=== PATIENT | female | born 1965 | race Caucasian/White ===

== ENCOUNTER → 2017-10-19 | Outpatient (CLI) | payer OTHER ==
[2017-10-19 18:30] LABS: ALBUMIN 3.5 gm/dl (3.4-5.0); ALT/SGPT 53 U/L (12-78); BLOOD UREA NITROGEN 11 mg/dl (7-18); CALCIUM 9.1 mg/dl (8.5-10.1); CARBON DIOXIDE 29 mmol/L (21-32); CREATININE 0.86 mg/dl (0.60-1.20); GLUCOSE 142 mg/dl (70-99); SODIUM 138 mmol/L (136-145)
[2017-10-19 18:33] LABS: ALKALINE PHOSPHATASE 133 U/L (45-117); AST/SGOT 23 U/L (15-37); TOTAL PROTEIN 7.7 gm/dl (6.4-8.2)
== END | disposition home or self-care (01) ==
LOC: C.LABMFLN 11:12
PROVIDERS: ATTEND Family Medicine
DX: L72.9 Follicular cyst of the skin and subcutaneous tissue, unspecified (principal); E55.9 Vitamin D deficiency, unspecified; R74.8 Abnormal levels of other serum enzymes

== ENCOUNTER 2022-02-03 12:35 | Observation (INO) ==
--- NOTE | 2022-02-01 14:17 | Anesthesiology Consultation ---
Date of Service February 01, 2022 Assessment & Plan (1) Encounter for pre-operative examination: Chart Review Chart Review: Acceptable Risk for Surgery (pending preop Covid testing results ) and Patient NOT seen in Pre Admission Testing -Will leave to anesthesiologist discretion if CXR/coags needed DOS (secondary to PNB) - Check BSG AM DOS Per nursing assessment 01/27/2022, patient denies any recent travel. No known COVID infection in the past 90 days. Patient is fully vaccinated for COVID. No known Covid positive exposures or Covid related symptoms. Preop Covid testing 02/01/22= results pending Left knee arthroscopy, partial medial meniscectomy 06/02/2021 = done under [facility] with LMA #4. Atraumatic x1. History Surgery Operation Date: 02/03/22 15:20 Proposed Procedures p Right Shoulder Arthroscopy with Extensive Debridement, Acromioplasty Possible Rotator Cuff Repair - Michele Jimenez, Height/Weight Height: 5 ft 5 in Weight: 133.81 kg Allergies Allergy/AdvReac Type Severity Reaction Status Date / Time Influenza Virus Vaccines Allergy Intermediate Hives Verified 01/27/22 08:33 Medications Home Medications Medication Instructions Recorded Confirmed Last Taken cyclobenzaprine 10 mg tablet 10 mg PO TID PRN #90 tab 03/12/19 01/27/22 05/30/21 blood sugar diagnostic (OneTouch #100 ea 03/20/19 11/02/21 Unknown Verio test strips) albuterol sulfate 2.5 mg INHALATION Q4H PRN 05/17/21 01/27/22 Unknown slxxmysofr-cmyvblkoxodyr-jkzojcik 1 tab PO Q6H PRN 05/17/21 01/27/22 Unknown 50 mg-325 mg-40 mg tablet (Esgic) celecoxib 200 mg capsule (Celebrex) 200 mg PO QAM 05/17/21 01/27/22 06/01/21 14:00 glimepiride 2 mg tablet 2 mg PO HS 05/17/21 01/27/22 06/02/21 01:00 glimepiride 2 mg tablet (Amaryl) 4 mg PO QAM 05/17/21 01/27/22 06/01/21 14:00 melatonin 5 mg tablet 10 mg PO HS 05/17/21 01/27/22 06/02/21 02:00 omeprazole 20 mg capsule,delayed 20 mg PO BID 05/17/21 01/27/22 06/01/21 14:00 release vitamin B complex (B 1 tab PO QAM 05/17/21 01/27/22 06/01/21 14:00 Complex-Vitamin B12) montelukast 10 mg tablet 10 mg PO QAM #90 tab 06/07/21 01/27/22 Unknown ondansetron 4 mg disintegrating 4 mg PO Q8H PRN #90 tab 06/28/21 01/27/22 Unknown tablet glucometer #1 ea 11/02/21 11/02/21 Unknown glucometer test strips #50 ea 11/19/21 Unknown lancets 33 gauge (OneTouch Delica #100 ea 11/19/21 Unknown Lancets) albuterol sulfate 90 mcg/actuation 2 inh INHALATION Q4H PRN #18 g 11/26/21 01/27/22 Unknown aerosol inhaler amlodipine 5 mg tablet 5 mg PO QAM #90 tab 12/03/21 01/27/22 Unknown hydrocodone 5 mg-acetaminophen 325 1 - 2 tab PO .Q4h-6h PRN #30 tab 12/29/21 01/27/22 Unknown mg tablet MDD 6 bupropion HCl 100 mg tablet 100 mg PO BID #60 tab 01/03/22 01/27/22 Unknown potassium chloride 8 mEq 8 meq PO QAM #90 tab 01/24/22 01/27/22 Unknown tablet,extended release (Klor-Con) spironolactone 25 mg tablet 25 mg PO QAM #90 tab 01/24/22 01/27/22 Unknown (Aldactone) aspirin 81 mg tablet,delayed 81 mg PO QAM 01/27/22 01/27/22 Unknown release (Enteric Coated Aspirin) cholecalciferol (vitamin D3) 1,250 1,250 mcg PO Q7D 01/27/22 01/27/22 Unknown mcg (50,000 unit) capsule gabapentin 100 mg capsule 300 mg PO UD 01/27/22 01/27/22 Unknown olmesartan 40 1 tab PO QAM 01/27/22 01/27/22 Unknown mg-hydrochlorothiazide 25 mg tablet (Benicar HCT) semaglutide (Ozempic) 0.25 mg SUBCUT Q7D 01/27/22 01/27/22 Unknown Past Medical History Medical History Anxiety Asthma Chronic back pain Degenerative disc disease GERD (gastroesophageal reflux disease) History of COVID-19 06/2020 tested positive [facility] and hospitalized for 10 days. Symptoms included: sob, fever, cough, pneumonia, respiratory failure, headache, nause a. still experiences sob at times. HTN (hypertension) Hx of migraines Nausea and vomiting after administration of anesthetic agent Peripheral neuropathy Post traumatic stress disorder Sleep apnea Bipap Type 2 diabetes mellitus NIDDM Past Family History Family History Brother Asthma Hyperlipidemia Hypertension Father Afib Heart disease Mother Hypertension Other Myocardial infarction Denies family history of Ovarian cancer Prostate cancer Breast cancer Colorectal cancer Past Surgical History Surgical History History of ankle surgery right x2 History of delivery History of cholecystectomy History of colonoscopy History of esophagogastroduodenoscopy (EGD) History of foot surgery bilateral History of oral surgery S/P endometrial ablation S/P epidural steroid injection S/P left knee arthroscopy Social History Smoking Status: Never smoker Do You Dip or Chew Tobacco: No Hx Alcohol Use: No Hx Substance Use: No substance use type: does not use Lab Results Anesthesia Preop Results Results Anesthesia Widget: WBC 10.06 K/uL (4.8-10.8) 02/01/22 Hgb 12.8 g/dL (12.0-16.0) 02/01/22 Hct 39.3 % (37-47) 02/01/22 Plt 360 K/uL (130-400) 02/01/22 Na 138 mmol/L (136-145) 02/01/22 K 3.8 mmol/L (3.5-5.1) 02/01/22 Cl 105 mmol/L (98-107) 02/01/22 CO2 27 mmol/L (21-32) 02/01/22 BUN 27 mg/dl (6-23) H 02/01/22 Creat 1.15 mg/dl (0.6-1.2) 02/01/22 Glucose Level 111 mg/dl (70-99(Fasting)) H 02/01/22 Testing Electrocardiogram Date: 05/17/21 Sinus rhythm at 81bpm.
--- NOTE | 2022-02-03 12:14 | History & Physical Bridge Note ---
Date of Service February 03, 2022 History & Physical Bridge Note I have examined the patient, reviewed the History & Physical and in the interval since the performance of the History & Physical I have noted the following changes of clinical significance: no changes noted
[~2022-02-03 12:35] MED LIST: BUPIVACAINE 0.5 % 5 MG/1 ML PF 10ML VIAL ONE; LR 15ML/HR IV SCH; LR 60ML/HR IV SCH
[2022-02-03] MEDS ORDERED: LIDOCAINE 2% 2 ML VIAL/AMP(20MG/ML) INFIL ONE (12:57)
[2022-02-03] MEDS ORDERED: PROPOFOL IV EMULSION 10 MG/ML 20 ML VIAL IV ONE (12:57)
[2022-02-03] MEDS ORDERED: DEXAMETHASONE SOD INJ 4 MG/ML VIAL ONE (12:57)
[2022-02-03] MEDS ORDERED: SUCCINYLCHOLINE CHLORIDE 20 MG/ML 10 ML VIAL IV ONE (12:57)
[2022-02-03] MEDS ORDERED: ROCURONIUM BROMIDE 10 MG/ML 5 ML VIAL IV ONE (12:57)
[2022-02-03] MEDS ORDERED: ONDANSETRON INJ 2 MG/ML 2 ML VIAL ONE (12:57)
[2022-02-03] MEDS ORDERED: MIDAZOLAM HCL 1 MG/ML 2ML VIAL ONE (12:58)
[2022-02-03] MEDS ORDERED: fentaNYL citrate 100 MCG/2 ML VIAL ONE (12:59)
[2022-02-03] MEDS ORDERED: EpINEphrine HCL INJ 1 MG/ML 1ML SYRINGE ONE (13:25)
[2022-02-03] MEDS ORDERED: BUPIVACAINE/EPINEPHRINE 0.25% 1:200,000 30 ML VIAL ONE (13:25)
[2022-02-03] MEDS ORDERED: ATROPINE SULFATE 0.1 MG/ML 10ML SYR IV PRN (13:28)
[2022-02-03] MEDS ORDERED: ONDANSETRON INJ 2 MG/ML 2 ML VIAL IV PRN ×3 (13:28→19:40)
[2022-02-03] MEDS ORDERED: ePHEDrine sulfate 50 MG/ML AMP IV PRN (13:28)
[2022-02-03] MEDS ORDERED: ALBUTEROL HFA INHALER 8.5 GM ONE (14:27)
[2022-02-03] MEDS ORDERED: ALBUT/IPRATROP 3MG/0.5MG NEB 3 ML VIAL INH PRN (14:51)
[2022-02-03] MEDS ORDERED: NEOSTIGMINE METHYLSULFATE 1 MG/ML 10ML VIAL ONE (14:58)
[2022-02-03] MEDS ORDERED: GLYCOPYRROLATE 0.2 MG/ML VIAL ONE (14:58)
--- NOTE | 2022-02-03 15:02 | Operative Report ---
PG Post Operative Report Pre & Post Diagnosis Operation Date: 02/03/22 14:15 Pre-Op Diagnosis: Acute right rotator cuff tear and biceps tendinopathy Post-Op Diagnosis: Acute right rotator cuff tear and biceps tendinopathy I identified the patient and participated in the time-out.: Yes Procedure Operation Date: 02/03/22 14:15 Actual Procedures p Right Shoulder Arthroscopy with Extensive Debridement, Acromioplasty, Rotator Cuff Repair, And biceps tenodesis(Right) - Michele Jimenez DO Surgeon Michele Jimenez DO Hospitality Ambassador Michele Davila PAC Estimated Blood Loss 5 Findings Consistent with Post-Op Diagnosis Specimens None Complications none Disposition Disposition: Recovery Room Description of Procedure On February 03, 2022 Arianna arrived at [facility] for the above procedure. She was seen in the preoperative holding area and the operative extremity was then fine signed. She was given a preoperative antibiotic and a right interscalene nerve block. She was taken back to the operating room and laid on the table in supine position. She was put under general anesthesia. She was put into the beachchair position. The right shoulder was prepped and draped in sterile fashion. A timeout was done. The patient and the operative extremity was properly identified. A scope was introduced into a posterior portal. Diagnostic arthroscopy showed no cartilage damage to the humeral head of the glenoid. There was some fraying of the anterior superior labrum. There was a little bit of fraying of the long head of the biceps tendon. There was a tear of the anterior supraspinatus. It was a full-thickness tear. The remainder the rotator cuff is intact. An anterior portal was made. Shaver is used to do a debridement of the intra- articular structures. The anterior and superior labrum were debrided back to stable margins. The long head of the biceps tendon was tenotomized for a later tenodesis. The stump of the biceps was debrided back to the insertion on the glenoid. The articular side of the rotator cuff was debrided to better define the tear. The scope was then put in the subacromial space. A lateral portal was made and a shaver was used to do a complete subacromial and subdeltoid bursectomy.An ablator was used to tease the coracoacromial ligament off the undersurface of the acromion. A bur was used to complete an acromioplasty of a type III acromion. Shaver is used to move any excess debris and attention was turned to the rotator cuff. There was a small crescent-shaped anterior rotator cuff tear. It was a full-thickness tear. An additional anterior lateral portal was made and Cathleen cannulas were placed in each of the lateral portals. The long head of the biceps tendon was tagged with an Arthrex Fiber link in a loop and tack technique. The rotator cuff was then fixed with an Arthrex modified speed bridge configuration using a single medial row bio composite swivel lock suture anchor and 2 fiber tapes. The tapes were passed through the tendon at the anticipated articular margin and brought down to a single lateral row swivel lock suture anchor. This gave a nice knotless repair. Multiple pictures were taken. The tail from the long head of the biceps tendon was incorporated into the anterior medial anchor. This completed an arthroscopic biceps tenodesis. Pictures were taken. Arthroscopic instruments were removed from the shoulder. Portal sites were closed with 3-0 nylon. She was then placed in a soft dressing and a regular arm sling. She was then extubated and transferred to a [facility]. She was taken to the postanesthesia care unit in stable condition. She tolerated the procedure well. Michele Davila PA-C, was present for the entire procedure. He was critical for patient positioning, prepping, draping, retraction exposure, wound closure and application of sterile dressing. I attest to the content of the Intraoperative Record and any orders documented therein. Any exceptions are noted below.
[2022-02-03] MEDS ORDERED: oxyCODONE/ACETAMINOPHEN 5mg/325mg TAB PO PRN (15:12)
[2022-02-03] MEDS: fentaNYL citrate 100 MCG/2 ML VIAL IV PRN ×2 (15:55→16:09)
--- NOTE | 2022-02-03 18:51 | Anesthesiology Progress Note ---
Date of Service February 03, 2022 Anesthesia Post Procedure Vital Signs Vital Signs: Temp Pulse Pulse Pulse Resp BP Pulse Ox 02/03/22 17:50 93 H 18 128/70 92 02/03/22 17:20 90 18 103/53 L 92 02/03/22 17:15 36.6 C 86 17 98/46 L 93 02/03/22 17:05 88 17 96/46 L 93 02/03/22 16:55 90 17 94/47 L 93 02/03/22 16:45 82 17 93/47 L 92 02/03/22 16:35 86 18 100/50 L 94 02/03/22 16:25 93 H 23 100/52 L 94 02/03/22 16:15 86 20 107/56 L 95 02/03/22 16:05 87 19 112/58 L 96 02/03/22 15:55 36.5 C 85 19 117/60 95 02/03/22 15:45 86 22 121/56 L 97 02/03/22 15:35 92 H 24 134/43 L 98 02/03/22 15:34 93 H 24 98 02/03/22 15:27 93 H 34 H 99 02/03/22 15:25 92 H 22 128/61 98 02/03/22 15:16 36.4 C L 97 H 19 101/65 89 L 02/03/22 12:51 36.8 C 92 H 20 130/66 97 Pain Intensity Right Shoulder: Pain Intensity: 5 Medial Chest: Pain Intensity: 1 Transfer of Care Handoff Completed per policy Notes Mental Status: alert / awake / arousable Patient Amnestic to Procedure: Yes Nausea / Vomiting: adequately controlled Pain: adequately controlled Airway Patency, RR, SpO2: stable & adequate BP & HR: stable & adequate Hydration State: stable & adequate Anesthetic Complications: no major complications apparent Notes: patient stable and ok on oxygen to sats in the low 90's - don't feel comfortable sending her home - will habe Dr Jimenez called about admitting her.
[2022-02-03] MEDS ORDERED: ALBUTEROL 0.083% NEBU SOLN 3 ML VIAL INH PRN (19:40)
[2022-02-03] MEDS ORDERED: ALBUTEROL HFA 8 GM INHALER INH PRN (19:40)
[2022-02-03] MEDS ORDERED: METOCLOPRAMIDE HCL INJ 5 MG/ML 2 ML VIAL IV PRN (19:40)
[2022-02-03] MEDS ORDERED: NALOXONE HCL 0.4 MG/1 ML VIAL/CARP IV PRN (19:40)
[2022-02-03] MEDS ORDERED: MAGNESIUM HYDROXIDE SUSP 30 ML UDC PO PRN (19:40)
[2022-02-03] MEDS ORDERED: ONDANSETRON 4 MG OD TAB PO PRN (19:40)
[2022-02-03] MEDS ORDERED: PHARMACY GLYCEMIC MGMT CONSULT PRN (19:40)
[2022-02-03] MEDS ORDERED: bisacodyL 10 MG SUPP PR PRN (19:40)
[2022-02-03] MEDS ORDERED: SODIUM CHLORIDE 0.9% 1000ML 1,000 ML IV SCH (20:15)
[2022-02-03] MEDS ORDERED: CARBOHYDRATES FOR HYPOGLYCEMIA PO PRN (20:30)
[2022-02-03] MEDS ORDERED: GLUCOSE 10 TAB/TUBE PO PRN (20:30)
[2022-02-03] MEDS ORDERED: DEXTROSE 50% 50 ML SYRINGE IV PRN (20:30)
[2022-02-03] MEDS ORDERED: GLUCOSE 40% GEL 15 GM TUBE PO PRN (20:30)
[2022-02-03] MEDS ORDERED: GLUCAGON FOR INJ 1 MG VIAL IM PRN (20:30)
[2022-02-03] MEDS ORDERED: GABAPENTIN 100 MG CAP PO SCH (21:00)
[2022-02-03] MEDS ORDERED: MELATONIN 3 MG TAB PO SCH (21:00)
--- NOTE | 2022-02-03 21:23 | Hospitalist Consultation ---
Date of Consultation February 03, 2022 Assessment & Plan (1) Hypoxia: 56 year old female w/ diabetes, anxiety/depression, HTN, JOANA on bipap, asthma, and prior covid infection who presented to [facility] for R rotator cuff surgery, performed this afternoon. Hospitalist service has been consulted for desaturation to upper 80s on room air. - considered exacerbation of chronic mild restrictive lung disease in setting of postop/postanesthesia - also considered slight hypervolemia, atelectasis - lower suspicion for infectious process at this time - reviewed labs (cbc, bmp) from today - continue 2 liters supplemental oxygen via nasal cannula for now - will provide a duoneb treatment - check cxr because on exam, RLL softer, though could be 2/2 R sided shoulder surgery - stopping the 100mL/hr NSS (2) Type 2 diabetes mellitus: - continue SSI . hold home PO regimen (3) HTN (hypertension): - continue home regimen (4) Asthma: - on prn albuterol at home. per 2020 PFTs, no reversible obstruction noted (5) Obstructive sleep apnea: - continue home bipap qhs (6) Status post rotator cuff surgery: - pain control and management per primary service, ortho FEN/GI: DM2, low Na. Stopping NSS 100/hr. ppx: asa per ortho code: full dispo: med surg Supervising Physician Co-Signing Physician Notes Attending addendum: I have physically seen this patient, have supervised the medical residents activities, and agree with the H&P unless as otherwise noted. Assessment and Plan: Hypoxia status post right rotator cuff surgery- DuoNebs every 2 hours as needed Order chest x-ray to assess for possible causes such as aspiration Hold IV fluids for now Continue BiPAP for JOANA at bedtime Further recommendations after above Diabetes mellitus- Hold glimepiride Placed on Accu-Cheks before meals and at bedtime with NovoLog coverage per scale Hypertension- Okay to resume irbesartan/HCTZ in a.m., as long as creatinine acceptable on BMP Continue amlodipine Remaining orders and notations as noted History of Present Illness Reason for Consultation: hypoxia, dyspnea Requesting Physician: Dr. Jimenez Attending Physician: Dr. Jerez History of Present Illness 56 year old female w/ diabetes, anxiety/depression, HTN, JOANA on bipap, asthma, and prior covid infection who presented to [facility] for R rotator cuff surgery, performed this afternoon. Hospitalist consult was requested this evening after she desaturated to upper 80s on room air. Patient states she had dyspnea after returning to the floor after the surgery. After 2L nasula cannula, she is saturating 93% and the dyspnea is improved, though she still has slightly. She has a dry cough and mild sore throat. Denies fever/chills, nausea, abd pain, chest pain. Patient states since recovering from covid 1.5 years ago, has had dyspnea. She follows sleep medicine and pulmonology. She takes albuterol MDI and neb prn at home. Distant tobacco use x 2 years. Allergies Allergy/AdvReac Type Severity Reaction Status Date / Time Influenza Virus Vaccines Allergy Intermediate Hives Verified 02/03/22 12:53 Home Medications Medication Instructions Recorded Confirmed Type cyclobenzaprine 10 mg tablet 10 mg PO TID PRN #90 tab 03/12/19 02/03/22 Rx blood sugar diagnostic (OneTouch #100 ea 03/20/19 11/02/21 Rx Verio test strips) albuterol sulfate 2.5 mg INHALATION Q4H PRN 05/17/21 02/03/22 History mhtvyaesmh-xltwchikiekxs-qyysqviy 1 tab PO Q6H PRN 05/17/21 02/03/22 History 50 mg-325 mg-40 mg tablet (Esgic) glimepiride 2 mg tablet 2 mg PO HS 05/17/21 02/03/22 History glimepiride 2 mg tablet (Amaryl) 4 mg PO QAM 05/17/21 02/03/22 History melatonin 5 mg tablet 10 mg PO HS 05/17/21 02/03/22 History omeprazole 20 mg capsule,delayed 20 mg PO BID 05/17/21 02/03/22 History release vitamin B complex (B 1 tab PO QAM 05/17/21 02/03/22 History Complex-Vitamin B12) montelukast 10 mg tablet 10 mg PO QAM #90 tab 06/07/21 02/03/22 Rx ondansetron 4 mg disintegrating 4 mg PO Q8H PRN #90 tab 06/28/21 02/03/22 Rx tablet glucometer #1 ea 11/02/21 11/02/21 Rx glucometer test strips #50 ea 11/19/21 Rx lancets 33 gauge (OneTouch Delica #100 ea 11/19/21 Rx Lancets) albuterol sulfate 90 mcg/actuation 2 inh INHALATION Q4H PRN #18 g 11/26/21 02/03/22 Rx aerosol inhaler amlodipine 5 mg tablet 5 mg PO QAM #90 tab 12/03/21 02/03/22 Rx bupropion HCl 100 mg tablet 100 mg PO BID #60 tab 01/03/22 02/03/22 Rx potassium chloride 8 mEq 8 meq PO QAM #90 tab 01/24/22 02/03/22 Rx tablet,extended release (Klor-Con) spironolactone 25 mg tablet 25 mg PO QAM #90 tab 01/24/22 02/03/22 Rx (Aldactone) aspirin 81 mg tablet,delayed 81 mg PO QAM 01/27/22 02/03/22 History release (Enteric Coated Aspirin) cholecalciferol (vitamin D3) 1,250 1,250 mcg PO Q7D 01/27/22 02/03/22 History mcg (50,000 unit) capsule gabapentin 100 mg capsule 300 mg PO UD 01/27/22 02/03/22 History semaglutide (Ozempic) 0.25 mg SUBCUT Q7D 01/27/22 02/03/22 History olmesartan 40 1 tab PO QAM #90 tab 02/03/22 Rx mg-hydrochlorothiazide 25 mg tablet (Benicar HCT) oxycodone-acetaminophen 5 mg-325 1 tab PO Q6H PRN #20 tab 02/03/22 Rx mg tablet (Percocet) ketorolac 10 mg tablet 10 mg PO Q8H 5 Days #15 tab 02/04/22 Rx Patient History Medical History Anxiety Asthma Chronic back pain Degenerative disc disease GERD (gastroesophageal reflux disease) History of COVID-19 06/2020 tested positive [facility] and hospitalized for 10 days. Symptoms included: sob, fever, cough, pneumonia, respiratory failure, headache, nausea. still experiences sob at times. HTN (hypertension) Hx of migraines Nausea and vomiting after administration of anesthetic agent Peripheral neuropathy Post traumatic stress disorder Sleep apnea Bipap Type 2 diabetes mellitus NIDDM Surgical History History of ankle surgery right x2 History of delivery History of cholecystectomy History of colonoscopy History of esophagogastroduodenoscopy (EGD) History of foot surgery bilateral History of oral surgery S/P endometrial ablation S/P epidural steroid injection S/P left knee arthroscopy Family History Brother Asthma Hyperlipidemia Hypertension Father Afib Heart disease Mother Hypertension Other Myocardial infarction Denies family history of Ovarian cancer Prostate cancer Breast cancer Colorectal cancer Social History (Updated 02/03/22 @ 21:37 by Sp Jasso MD) Smoking Status: Former smoker Second Hand Exposure: Yes; Hx Alcohol Use: No Hx Substance Use: No Preferred Language: Norwegian Communication Ability: Effective Visual Impairment: No Limitations Hearing Ability: Normal Electroencephalogram Technologist Required: No Beliefs That Will Affect Care: None marital status: Current Living Situation: Spouse and Family current occupational status: employed current occupation: [employer] How many Children do You have: 2 Feels Safe at Home: Yes Childhood Exposure to Second-Hand Smoke: Yes Physical Activity Frequency: 1-2 Times per Week Seatbelt Use: always Sunscreen Use: Yes Assistive Devices: None Review of Systems Review of Systems: All systems reviewed & are unremarkable except as noted in HPI & below Physical Exam Physical Exam: General: Grosly A&O. NAD. Cooperative. HEENT: Atraumatic, normocephalic. EOMI Pulm: Faint insp crackles at bases. RLL air movement is decreased. No accessory muscle use. Cardiac: Mild tachycardia. -mrg. Faint slight trace LE edema on R. Bilat ankles appear puffy. Abdominal: Nontender, nondistended, soft. Msk: R shoulder in sling. Neuro: Moving R hand/fingers. Sensation of R hand intact. No sensation of R upper arm secondary to anesthesia. Results & Data Results & Data ([facility]) Vital Signs (Past 12 Hours) Vital Signs Temp Pulse Pulse Pulse Resp BP Pulse Ox 02/03/22 20:00 36.8 C 105 H 24 134/78 92 02/03/22 19:30 36.8 C 102 H 22 119/76 94 02/03/22 19:20 36.7 C 102 H 18 105/58 L 92 02/03/22 18:20 99 H 18 119/59 L 92 02/03/22 17:50 93 H 18 128/70 92 02/03/22 17:20 36.6 C 90 18 103/53 L 92 02/03/22 17:15 36.6 C 86 17 98/46 L 93 02/03/22 17:05 88 17 96/46 L 93 02/03/22 16:55 90 17 94/47 L 93 02/03/22 16:45 82 17 93/47 L 92 02/03/22 16:35 86 18 100/50 L 94 02/03/22 16:25 93 H 23 100/52 L 94 02/03/22 16:15 86 20 107/56 L 95 02/03/22 16:05 87 19 112/58 L 96 02/03/22 15:55 36.5 C 85 19 117/60 95 02/03/22 15:45 86 22 121/56 L 97 02/03/22 15:35 92 H 24 134/43 L 98 02/03/22 15:34 93 H 24 98 02/03/22 15:27 93 H 34 H 99 02/03/22 15:25 92 H 22 128/61 98 02/03/22 15:16 36.4 C L 97 H 19 101/65 89 L 02/03/22 12:51 36.8 C 92 H 20 130/66 97 Laboratory Results Intake and Output 02/03/22 02/03/22 02/03/22 06:59 14:59 22:59 Intake Total 500 / 500 Balance 500 / 500 Intake: IV Perioperative 100 / 100 Oral 400 / 400 Other: Weight 137.6 kg Weight Measurement Method Standing Scale Patient Weight 02/04/22 06:59 Weight 137.6 kg Resident Activity Tracking Resident Involvement: Resident Care Provided Care Provided: Adult Hospital Medicine
[2022-02-03] MEDS: PANTOprazole 40 MG TAB PO SCH (21:30)
[2022-02-03] MEDS: buPROPion HCl 100 MG TABLET PO SCH (21:31)
[2022-02-03] MEDS: ACETAMINOPHEN 500 MG TAB PO SCH (21:31)
[2022-02-03] MEDS ORDERED: ALBUT/IPRATROP 3MG/0.5MG NEB 3 ML VIAL NEB STA (21:58)
[2022-02-03] MEDS: INSULIN ASPART PER UNIT SC SCH (22:31)
[2022-02-03] MEDS ORDERED: COUGH DROP (SUGAR FREE) LOZ 24 LOZ/1 BOX BUCCAL PRN (22:51)
[2022-02-03] MEDS ORDERED: COUGH DROP (SUGAR FREE) LOZ 24 LOZ/1 BOX BUCCAL ONE (23:15)
[2022-02-04] MEDS: INSULIN ASPART PER UNIT SC SCH ×5 (01:07→17:08)
[2022-02-04] MEDS: oxyCODONE HCL IR 5 MG TAB (IMMEDIATE RELEASE) PO PRN ×3 (01:10→18:03)
[2022-02-04] MEDS: ACETAMINOPHEN 500 MG TAB PO SCH ×2 (05:37→13:58)
--- NOTE | 2022-02-04 07:07 | XRay Report ---
XR chest 1V portable HISTORY: 56 years-old Female assess for consolidation vs atelecatasis acute shortness of breath COMPARISON: Chest radiograph 02/04/2022 TECHNIQUE: AP view of the chest FINDINGS: Cardiac silhouette is enlarged. Pulmonary vascular congestion. No pneumothorax. Mild right hemidiaphr agmatic elevation. Subsegmental right greater than left bibasilar opacities. No large pleural effusio n. Degenerative changes of the shoulders and spine. IMPRESSION: 1. Cardiomegaly with pulmonary vascular congestion. 2. Right hemidiaphragm elevation with bibasilar opacities suggestive of atelectasis. ACT 112: Negative or not required by law. The above report was generated using voice recognition software. It may contain grammatical, syntax o r spelling errors. Electronically signed by: Eduardo Olvera M.D. 02/04/2022 7:05 AM
--- NOTE | 2022-02-04 07:08 | XRay Report ---
XR chest 1V portable HISTORY: 56 years-old Female check for elevated hemidiphragm. Acute shortness of breath COMPARISON: Chest radiograph 02/03/2022 TECHNIQUE: AP view of the chest FINDINGS: Cardiac silhouette is enlarged. Pulmonary vascular congestion. No pneumothorax. There is unchanged ri ght hemidiaphragmatic elevation. Subsegmental right greater than left bibasilar opacities. No large p leural effusion. Degenerative changes of the shoulders and spine. IMPRESSION: 1. Cardiomegaly with pulmonary vascular congestion. 2. Unchanged right hemidiaphragm elevation with right greater than left bibasilar opacities favoring atelectasis. ACT 112: Negative or not required by law. The above report was generated using voice recognition software. It may contain grammatical, syntax o r spelling errors. Electronically signed by: Eduardo Olvera M.D. 02/04/2022 7:07 AM
--- NOTE | 2022-02-04 08:00 | Hospitalist Progress Note ---
Date of Service February 04, 2022 Assessment & Plan (1) Hypoxia: Plan: 56 year old female w/ diabetes, anxiety/depression, HTN, JOANA on bipap, asthma, and prior covid infection who presented to [facility] for R rotator cuff surgery, performed this afternoon. Hospitalist service has been consulted for desaturation to upper 80s on room air. Hypoxia Initial consult w/ consideration of acute on chronic mild restrictive lung disease in the setting of postop/postanesthesia --> Nebs - PFTs 09/2020: Mild resrticution. No change post BD. FVC 70%, FEV1 80%, FEV1/FVC 113%. BMI 50. - Last seen by Pulm for mild persistent asthma 10/2021, Control score 19. JOANA + GERD, not compliant with CPAP. Spirva + NALDO. CXR shows pulmonary vascular congestion, repeat similar. Bibasilar opacities are present. R hemidiaphragm elevation w/ atelectasis. ?post-op diaphragm paralysis. CBC, BMP, procalcitonin, BNP pending - Recieved 1532 total intake, output 600 Ow 3 L w/ saturations 94%. No tachycardia. DVT PPx []. - IVF were discontinued yesterday - If Cr stable +20IV lasix Continue incentive spirometer - Further recommendations pending labs/daily eval (2) Type 2 diabetes mellitus: Plan: - continue SSI . hold home PO regimen (3) HTN (hypertension): Plan: - continue home regimen (4) Asthma: Plan: - on prn albuterol at home. per 2020 PFTs, no reversible obstruction noted (5) Obstructive sleep apnea: Plan: - continue home bipap qhs (6) Status post rotator cuff surgery: Plan: - pain control and management per primary service, ortho Plan: FEN/GI: DM2, low Na. Stopping NSS 100/hr. ppx: asa per ortho code: full dispo: med surg Admission and Anticipated Discharge Date Admission Date: February 03, 2022 Results & Data Results & Data ([facility]) Vital Signs (Past 12 Hours) Vital Signs Temp Pulse Pulse Resp BP Pulse Ox 02/04/22 07:08 36.8 C 82 14 114/68 94 02/04/22 05:00 36.9 C 90 22 109/69 92 02/04/22 02:48 89 16 92 02/04/22 00:55 36.5 C 96 H 20 106/66 96 02/03/22 23:35 95 H 21 94 02/03/22 22:25 36.8 C 101 H 24 101/65 92 02/03/22 22:13 105 H 20 92 02/03/22 21:30 36.8 C 98 H 24 97/63 L 92 02/03/22 20:30 36.8 C 106 H 26 H 112/63 93 02/03/22 20:00 36.8 C 105 H 24 134/78 92 PG Care Time/CCT Total # of Minutes Spent Total Time Spent with Patient: Total time spent is greater than 50% in coordination of care (as documented) at patient's floor/unit and/or counseling patient: Coding Diagnoses Hypoxia R09.02 Type 2 diabetes mellitus E11.9 HTN (hypertension) I10 Asthma J45.909 Obstructive sleep apnea G47.33 Status post rotator cuff surgery Z98.890
[2022-02-04 08:31] LABS: Basophils # (auto) 0.03 K/uL (0-0.2); Basophils % (auto) 0.2 %; Hemoglobin 12.6 g/dl (12.0-16.0); Immature Granulocytes # (auto) 0.08 K/uL (0.00-0.02); Immature Granulocytes % (auto) 0.5 %; Lymphocytes # (auto) 1.05 K/uL (1.2-3.4); Lymphocytes % (auto) 6.7 %; Mean Corpuscular Hemoglobin 28.1 pg (25.0-34.0); Mean Corpuscular Hgb Conc 33.2 g/dL (32.0-36.0); Mean Corpuscular Volume 84.8 fL (80.0-100.0); Mean Platelet Volume 10.1 fL (9.4-12.3); Monocytes # (auto) 1.03 K/uL (0.24-0.82); Monocytes % (auto) 6.6 %; Neutrophils # (auto) 13.44 K/uL (1.4-6.5); Platelet Count 345 K/uL (130-400); RDW Standard Deviation 43.1 fL (36.4-46.3); Red Blood Count 4.48 M/uL (3.93-5.22); White Blood Count 15.63 K/ul (4.8-10.8)
[2022-02-04 08:36] LABS: Estimated Average Glucose 160 mg/dl; Hemoglobin A1C 7.2 % (4.5-5.6)
[2022-02-04] MEDS ORDERED: ASPIRIN 81 MG ECTAB PO SCH (09:00)
[2022-02-04] MEDS ORDERED: MONTELUKAST SODIUM 10 MG TABLET PO SCH (09:00)
[2022-02-04] MEDS ORDERED: FUROSEMIDE INJ 20 MG/2 ML VIAL IV ONE (09:00)
[2022-02-04] MEDS ORDERED: amLODIPine BESYLATE 5 MG TAB PO SCH (09:00)
[2022-02-04] MEDS ORDERED: SPIRONOLACTONE 25 MG TAB PO SCH (09:00)
[2022-02-04 09:02] LABS: BUN Creatinine Ratio 18.6 (10-20); Calcium 9.2 mg/dl (8.5-10.1); Creatinine Clr Calc Pharmacy 86.8 ml/min; Est GFR (African American) 71.2 ml/min; Est GFR (Non-African American) 61.4 ml/min; Potassium 4.2 mmol/L (3.5-5.1)
--- NOTE | 2022-02-04 09:13 | Orthopedic Progress Note ---
Date of Service February 04, 2022 Assessment & Plan (1) Status post rotator cuff surgery: We will see how she does today with her hypoxia. We will try to wean her off nasal cannula. She has been seen by the hospitalist. A checks x-ray will be ordered this morning. If we are able to wean her off the oxygen and her saturations remained above 90% then she can be discharged home. We will see how she does. Shelley Keller was seen and examined at bedside this morning. Overall she is doing fairly well. She is little bit hypoxic and she is on 2 L of nasal cannula. She is not having much pain in the right shoulder. Review of Systems All systems reviewed & are unremarkable except as noted in HPI & below. Physical Exam On physical examination of right shoulder, the dressing is clean and dry. She is wearing her sling as instructed.. Results & Data Results & Data Laboratory Results . Diagnostic Findings . PG Care Time/CCT Total # of Minutes Spent Total Time Spent with Patient: Total time spent is greater than 50% in coordination of care (as documented) at patient's floor/unit and/or counseling patient: Coding Level of Care Code 84825 Post Operative Follow-Up Diagnoses Status post rotator cuff surgery Z98.890
[2022-02-04] MEDS: buPROPion HCl 100 MG TABLET PO SCH (09:27)
[2022-02-04] MEDS: GABAPENTIN 100 MG CAP PO SCH ×2 (09:27→13:59)
[2022-02-04] MEDS: PANTOprazole 40 MG TAB PO SCH (09:28)
--- NOTE | 2022-02-04 14:00 | Pharmacy Report ---
Glycemic Ortho Sign Off Note - Date of Service February 04, 2022 - Scope Glycemic Pharmacist consulted for glycemic control and to write orders per [facility] inpatient glycemic control protocol. - Objective Accuchecks BSG (last 24hrs):: 02/03/22 02/03/22 02/04/22 15:25 22:22 00:52 Glucose POC Glucose 139 H 297 H 189 H 02/04/22 02/04/22 02/04/22 05:15 08:05 08:08 Glucose 153 H POC Glucose 132 H 134 H 02/04/22 12:12 Glucose POC Glucose 149 H HbA1c:: Hemoglobin A1c 7.2 % (4.5-5.6) H 02/04/22 08:08 - Assessment * Pt is maintained on oral antidiabeticagent[s]as anoutpatient with excellent control per recent A1c * Oral agents are not recommended for inpatient use d/t drug interactions, changing PO intake, and difficulty titrating for acute hyper/hypoglycemia. * Recommended regimen for inpatient use is SQ insulin * Low stress weight based insulin dosing appropriate since patient has minimal risk factors for insulin resistance (i.e. no steroids). * Appropriate to DC insulin and resume outpatient antidiabetic regimen at discharge * Goal is to maintain BSGs <200 mg/dl (ideally <150 mg/dl) to prevent post op complications - Plan For Inpatient Glycemic Control * Basal insulin * Not needed based on A1c, pre-op BSGs, and minimal risk factors for insulin resistance * Bolus insulin * Utilize low stress weight based NovoLog parameters per scale ACHS * Pharmacy has entered glycemic orders and is signing off of the glycemic consult. We will no longer be making adjustments to inpatient regimen. Please feel free to re-consult if needed. Thank you.
--- NOTE | 2022-02-04 14:11 | Hospitalist Progress Note ---
Date of Service February 04, 2022 Assessment & Plan (1) Hypoxia: Plan: 56 year old female w/ diabetes, anxiety/depression, HTN, JOANA on bipap, asthma, and prior covid infection who presented to [facility] for R rotator cuff surgery, performed this afternoon. Hospitalist service has been consulted for desaturation to upper 80s on room air. - Initial consult w/ consideration of acute on chronic mild restrictive lung disease in the setting of postop/postanesthesia --> Nebs - PFTs 09/2020: Mild restriction. No change post BD. FVC 70%, FEV1 80%, FEV1/FVC 113%. BMI 50. - Last seen by Pulm for mild persistent asthma 10/2021, Control score 19. JOANA + GERD, not compliant with CPAP. Spiriva + NALDO. - CXR shows pulmonary vascular congestion, repeat similar. Bibasilar opacities are present. R hemidiaphragm elevation w/ atelectasis. ?post-op diaphragm paralysis. - CBC, BMP, procalcitonin, BNP pending - Received 1532 total intake, output 600 O2 3 L w/ saturations 94%. No tachycardia. Weaned down to 1L during my visit. - IVF were discontinued yesterday - Lasix 20mg IV x1 now - Continue incentive spirometer q1h wa in hospital-can transition to q3-4h when at home - Echocardiogram ordered but cancelled due to suboptimal views - since she mentioned that it has been over a year since this was last done, would recommend an updated echo as an outpatient - Two-step pulse ox study performed with RT, she was weaned down to room air and pt did NOT desturate with ambulation below 90% (2) Type 2 diabetes mellitus: Plan: - continue SSI - home regimen can be resumed (3) HTN (hypertension): Plan: - continue home regimen (4) Asthma: Plan: - on prn albuterol at home. per 2020 PFTs, no reversible obstruction noted - appears this regimen is being adjusted, most recently started on Symbicort (5) Obstructive sleep apnea: Plan: - continue home bipap qhs (6) Status post rotator cuff surgery: Plan: - pain control and management per primary service, ortho Plan: At this time, pt has been weaned off supplemental O2 to room air after dose of IV Lasix given this morning and she did NOT desturate with ambulation during two step pulse ox study. Would consider undergoing an updated echocardiogram in the near future, this could be ordered by her PCP. She is otherwise medically and hemodynamically stable for discharge. Recommend close f/u with family healthcare provider within 1 week or sooner if needed. Will sign off at this time, please feel free to notify of any acute issues while pt remains in house. Plan has been d/w Dr. Rincon. Admission and Anticipated Discharge Date Admission Date: February 03, 2022 Subjective Patient seen and examined on daily rounds this morning. She is POD#1 from a rotator cuff repair by Dr. Jimenez. Following surgery she developed post operative hypoxia for which hospitalists were consulted. On rounds, she is resting comfortably in bed, offers no new complaints/concerns. She denies chest pain or dyspnea, fever, chills, or cough. Reports she has a history of asthma, passive smoke exposure, and occupational exposure through working in a [employer]. She carries a prior history of oxygen dependence following COVID-19 for approximately 3 to 6 months. She also has obstructive sleep apnea for which she wears a BiPAP mask at night. Review of Systems Review of Systems: All systems reviewed and are unremarkable except as noted in HPI and below. Denies fever, chills, fatigue, headache, nasal congestion, sore throat, cough, chest pain, shortness of breath, palpitations, orthopnea, PND, abdominal pain, n/v/d, constipation, dysuria, hematuria, frequency, back pain, joint pain or swelling, easy bruising or bleeding, skin lesions or rashes. Physical Exam Physical Exam: GENERAL: 56 yo obese WF. NAD. LUNGS: Clear to auscultation bilaterally. No W/R/R. CARDIOVASCULAR: Regular rate and rhythm. ABDOMEN: Soft, non-tender and non-distended. BS x 4 quad. EXTREMITIES: R arm in sling. No edema. Non-tender. Peripheral pulses +2/4. NEUROLOGIC: A&O x3. PSYCHIATRIC: Cooperative. Appropriate mood and affect. SKIN: Warm, dry, intact. No rashes or lesions. Results & Data Results & Data ([facility]) Vital Signs (Past 12 Hours) Vital Signs Temp Pulse Pulse Pulse Pulse Pulse Resp 02/04/22 12:57 37 C 99 H 14 02/04/22 11:03 110 H 101 H 93 H 02/04/22 07:08 36.8 C 82 14 02/04/22 05:00 36.9 C 90 22 02/04/22 02:48 89 16 Resp Resp Resp BP Pulse Ox Pulse Ox Pulse Ox 02/04/22 12:57 134/78 90 02/04/22 11:03 20 20 18 90 92 02/04/22 07:08 114/68 94 02/04/22 05:00 109/69 92 02/04/22 02:48 92 Pulse Ox 02/04/22 12:57 02/04/22 11:03 92 02/04/22 07:08 02/04/22 05:00 02/04/22 02:48 Laboratory Results 02/04/22 08:08 02/04/22 08:08 PG Care Time/CCT Total # of Minutes Spent Total Time Spent with Patient: Total time spent is greater than 50% in coordination of care (as documented) at patient's floor/unit and/or counseling patient: Coding Level of Care Code 07823 Subseq Hosp Care Lvl 2 Diagnoses Hypoxia R09.02 Type 2 diabetes mellitus E11.9 HTN (hypertension) I10 Asthma J45.909 Obstructive sleep apnea G47.33 Status post rotator cuff surgery Z98.890
--- NOTE | 2022-02-04 14:20 | XCELERA ---
[id number]
--- NOTE | 2022-02-04 16:02 | Electrocardiogram Report ---
Test Reason : Blood Pressure : / mmHG Vent. Rate : 085 BPM Atrial Rate : 085 BPM P-R Int : 170 ms QRS Dur : 096 ms QT Int : 388 ms P-R-T Axes : 037 -13 018 degrees QTc Int : 461 ms Normal sinus rhythm Cannot rule out Anterior infarct , age undetermined Abnormal ECG No previous ECGs available Confirmed by Kuldeep Long ([id number]) on 02/04/2022 4:02:21 PM Referred By: Michele Jimenez Confirmed By:Kuldeep Long
--- NOTE | 2022-02-05 04:16 | Billing Data ---
Date of Service February 05, 2022 Coding Level of Care Code 62982 Inpt Consult Level 3
--- NOTE | 2022-02-07 17:31 | Discharge Summary ---
Date of Service February 07, 2022 Principal Diagnosis Same as "Discharge Diagnosis" noted below under Discharge Instructions. Discharge Exam On physical examination of right shoulder, the dressing is clean and dry. She is wearing her sling as instructed.. Discharge Data Consultations 02/03/22 19:40 Consult Hospitalist Routine Procedures Performed Operation Date: 02/03/22 14:15 Actual Procedures p Right Shoulder Arthroscopy with Extensive Debridement, Acromioplasty, Rotator Cuff Repair(Right) - Michele Jimenez DO Ordered Studies 02/03/22 05:00 US - OR guided needle placemen Routine Hospital Course (1) Status post rotator cuff surgery: February 03, 2022 Arianna arrived to [facility] and underwent a rotator cuff repair without complication. She had a general anesthetic and an interscalene nerve block. Postoperatively she was initially expected to go home, unfortunately she was hypoxic and they were having trouble weaning her off the oxygen. The decision was made to keep her overnight. On postop day #1 she continued to deal with some hypoxia. She had trouble coming off the oxygen. They were unable to wean her. She did have an echocardiogram and she was being followed by the hospitalist. On postop day #2 she was doing a little bit better. They did a two-step with her and she was able to keep her sats above 90%. She was given some home oxygen. She was then discharged home. She will follow-up with her primary care physician as well as orthopedics in 2 weeks. PG Care Time/CCT Total # of Minutes Spent Total Time Spent with Patient: Total time spent is greater than 50% in coordination of care (as documented) at patient's floor/unit and/or counseling patient: Discharge Plan Discharge Items Patient Disposition: Home - Self-Care Reason For Visit: Right Rotator Cuff Tear Discharge Diagnosis: same as above Activity: Per Instructions section Non-emergency contact: Surgeon Call non-emergency contact if: your temperature is above 101.5, your wound has increased redness and your wound has increased drainage Follow-up/Referrals: Pablo Gee DO [Primary Care Provider] - Diet: Regular Addtl Attending Provider Instructions: Shoulder Rotator Cuff Repair Discharge Instructions Activity and Therapy Recommendations: 1. Wear your sling for 3 weeks. The duration will be noted on your physical therapy paperwork given after the surgery. You may remove your sling to shower and to dress, but otherwise, you should be in your sling at all times, including while sleeping 2. The rotator cuff repair is not fragile and you can use your hand while in the sling 3. Physical Therapy should start about 3-5 days from your day of surgery. Therapy should be about twice a week and last about 16 weeks. I dont want therapy any more than twice a week for 16 weeks but we can discuss going less (once a week) if co-pays are high. 4. The therapy protocol is structured around the biology of the tendon healing to the bone. Doing twice as many exercises will not get you better twice as fast. The motion will come. The goal is to get the tendon to heal to the bone and not get your motion back as fast as possible. Please be patient. 5. You can sleep in any position after the surgery as long as you are in your sling. Most people feel comfortable sleeping in a recliner, but you can sleep in a bed or on a couch if it is more comfortable. Medications: 1. Narcotic You will likely be sent home from the hospital with a prescription for the narcotic pain medication. Take it as needed. Side effects most commonly include nausea and constipation 2. Toradol You will likely be sent home with this anti-inflammatory. It is a post-surgical ibuprofen (NSAID). Take it for 5 days as prescribed. If you have any side effects, such as stomach upset (not nausea), then stop immediately Dressing Care: There will be a plastic dressing on your shoulder. Leave the dressing on for 48 hours. After 48 hours you may remove the dressing and leave the stitches open to air or cover them with band-aids if they are getting caught on your clothing. Showering: You may shower 48 hours after the surgery. Let the soapy shower water run over the stitches and pat them dry. Do not scrub or soak the incisions. Things To Watch For: 1. Drainage from the incision site that occurs more than one week after your surgery. 2. Increased redness at the incision site. 3. Fever above 102 degrees Fahrenheit. 4. Unusual chest pain or shortness of breath. 5. Call [facility] at with any of the above problems Follow-Up Visit: Follow-up with Dr. Jimenez's PA (Michele Davila) in 10-14 days post op for suture removal He will remove your sutures and answer any questions Dr. Jimenez is usually in the office at the same time if you have any additional questions An appointment was probably scheduled when you signed-up for surgery in the office. If you have any questions call Pending Studies at Discharge: No Stand-Alone Forms: Anesthesia/Sedation, Adult, Community Health, Smoking Cessation Medications and DC Order Prescriptions: New oxycodone-acetaminophen [Percocet] 5-325 mg tablet 1 tab PO Q6H PRN (Reason: pain) Qty: 20 RF: 0 ketorolac 10 mg tablet 10 mg PO Q8H 5 Days Qty: 15 RF: 0 Continued montelukast 10 mg tablet 10 mg PO QAM Qty: 90 RF: 3 ondansetron 4 mg tablet,disintegrating 4 mg PO Q8H PRN (Reason: nausea and vomiting) Qty: 90 RF: 0 (DME) lancets [OneTouch Delica Lancets] 33 gauge misc See Rx Instructions .Route Qty: 100 RF: 3 (DME) glucometer test strips See Rx Instructions .Route .MEDSUPPLY Qty: 50 RF: 5 albuterol sulfate 90 mcg/actuation HFA aerosol inhaler 2 inh inhalation Q4H PRN (Reason: shortness of breath or wheezing) Qty: 18 RF: 3 amlodipine 5 mg tablet 5 mg PO QAM Qty: 90 RF: 3 bupropion HCl 100 mg tablet 100 mg PO BID Qty: 60 RF: 5 spironolactone [Aldactone] 25 mg tablet 25 mg PO QAM Qty: 90 RF: 0 potassium chloride [Klor-Con 8] 8 mEq tablet extended release 8 meq PO QAM Qty: 90 RF: 1 olmesartan-hydrochlorothiazide [Benicar HCT] 40-25 mg tablet 1 tab PO QAM Qty: 90 RF: 3 cyclobenzaprine 10 mg tablet 10 mg PO TID PRN (Reason: muscle spasm) Qty: 90 RF: 0 (DME) OneTouch Verio test strips strip See Dose Instructions .ROUTE .MEDSUPPLY Qty: 100 RF: 3 (DME) glucometer See Rx Instructions .Route .MEDSUPPLY Qty: 1 RF: 0 glimepiride 2 mg Tablet 2 mg PO HS RF: 0 albuterol sulfate 2.5 mg /3 mL (0.083 %) solution for nebulization 2.5 mg inhalation Q4H PRN (Reason: shortness of breath or wheezing) RF: 0 swkjmoiwdh-altqwvbqifbgr-uqsk [Esgic] 50-325-40 mg tablet 1 tab PO Q6H PRN (Reason: migraine headache) RF: 0 glimepiride [Amaryl] 2 mg tablet 4 mg PO QAM RF: 0 omeprazole 20 mg capsule,delayed release(DR/EC) 20 mg PO BID RF: 0 vitamin B complex [B Complex-Vitamin B12] tablet 1 tab PO QAM RF: 0 melatonin 5 mg Tablet 10 mg PO HS RF: 0 aspirin [Enteric Coated Aspirin] 81 mg tablet,delayed release (DR/EC) 81 mg PO QAM RF: 0 gabapentin 100 mg capsule 300 mg PO UD RF: 0 cholecalciferol (vitamin D3) 1,250 mcg (50,000 unit) capsule 1,250 mcg PO Q7D RF: 0 Ozempic 0.25 mg or 0.5 mg(2 mg/1.5 mL) pen injector 0.25 mg subcut Q7D RF: 0 Discontinued hydrocodone-acetaminophen 5-325 mg tablet 1 - 2 tab PO .Q4h-6h MDD 6 PRN (Reason: pain) Qty: 30 RF: 0 Discharge Orders: Discharge Order (Routine); Ordered 02/04/22 Ordered By: Michele Farris/Other Patient Handouts: DVT Post Op Prevention, After Surgery for Sleep Apnea Admission Data Admit Date/Time: 02/03/22 18:19 Attending Provider: Michele Jimenez Admit Provider: Michele Jimenez Primary Care Provider: Pablo Gee Other Providers: Magdi Jerez ; Susana Owens ; Abimael Bhatti ; Lev Sommer ; Clarence Esquivel ; Arvind Hsieh ; Geovanni Hemphill ; Ellen Up ; Pantera Deleon ; Mari Weiss ; Maximino Burger ; Jayro Grimes ; Marleny Ayala ; Wilma Amador ; Hollie Oliva ; Samy Louie ; Susana Hernandez ; Renetta Mcneil ; Mohinder Flynn ; Abimael Dickerson ; Marely Ramsey ; Anna Joe ; Jules Conte ; Michell Vincent ; Diomedes Rincon ; Pierce Cleveland ; Jacey Vital ; Brandi Rivera ; Herbert Montes Other Interventions: Discharge Summary Assessment (RN) Last Done: 02/04/22 17:13
== END 2022-02-04 18:40 | disposition home or self-care (01) ==
LOC: 3W 12:35 → ASU 12:35